=== PATIENT | male | born 1955 | race Caucasian/White ===

== ENCOUNTER 2023-05-21 09:47 | Day surgery (SDC) | payer OTHER ==
[~2023-05-21] VITALS: Ht 172.7 cm; Wt 80.0 kg
[2023-05-21] MEDS ORDERED: MIDAZOLAM 5 MG/5 ML VIAL ONE (10:16)
[2023-05-21] MEDS ORDERED: fentaNYL citrate 0.05 MG/ML VIAL ONE ×2 (10:16→10:18)
[2023-05-21] MEDS ORDERED: diphenhydrAMINE 50 MG/ML VIAL ONE (10:16)
[2023-05-21] MEDS ORDERED: LIDOCAINE 2% 100 MG/5 ML UJET TP ONE (10:17)
[2023-05-21] MEDS ORDERED: fentaNYL citrate 0.05 MG/ML VIAL IVP ONE (14:50)
[2023-05-21] MEDS ORDERED: MIDAZOLAM 2 MG/2 ML VIAL IVP ONE (14:50)
== END 2023-05-21 12:25 | disposition home or self-care (01) ==
LOC: MOR 09:47 → MMU 09:48 → MOR 12:25
PROVIDERS: ATTEND Internal Medicine Gastroenterology
DX: Z12.11 Encounter for screening for malignant neoplasm of colon (principal); D12.0 Benign neoplasm of cecum; D12.2 Benign neoplasm of ascending colon; K21.9 Gastro-esophageal reflux disease without esophagitis; K64.8 Other hemorrhoids; K31.89 Other diseases of stomach and duodenum; Z79.899 Other long term (current) drug therapy
CPT/HCPCS: 43239; 45385; 88305; 88312; 88313; 88342; J2250; J3010; J1200